=== PATIENT | male | born 1970 ===

== ENCOUNTER → 2019-12-21 | Outpatient (CLI) | payer BC ==
--- NOTE | 2019-12-21 16:21 | KCIC ---
CT CHEST WO CONTRAST Indication: Hilar adenopathy, pleural effusion, chest pain Technique: Noncontrast CT imaging was performed of the chest, multiplanar reconstruction images submitted. One or more of the following individualized dose reduction techniques were utilized for this examination: 1. Automated exposure control 2. Adjustment of the mA and/or kV according to patient size 3. Use of iterative reconstruction technique. Comparison: None Findings: There are some calcified nodes of the right mediastinum and hilum. No enlarged noncalcified nodes are identified of the chest. Thoracic aortic caliber is within normal limits. There is mild coronary calcification. There is no pleural or pericardial fluid, pneumothorax, or infiltrate. There is tiny right upper lobe nodule laterally about 0.2 cm image 28 series 2. There is a tiny 0.2 cm fairly dense right lower lobe nodule image 36 series 2 likely partially calcified. There is multilevel mild thoracic spondylosis. IMPRESSION: 1. There are calcified right mediastinal and hilar nodes, evidence of old granulomatous disease. 2. There is mild coronary calcification. 3. There is tiny right upper lobe nodule, no new additional follow-up needed if low risk factors for neoplasm, optional 12 month follow-up if increased risk factors for neoplasm as per revised Fleischner guidelines. Electronically signed by: Grzegorz Lopez MD (12/21/2019 4:18 PM) [id number]
== END | disposition home or self-care (01) ==
LOC: KCIC CT 14:17
PROVIDERS: ATTEND Internal Medicine
DX: Z00.00 Encounter for general adult medical examination without abnormal findings (principal); R30.0 Dysuria; R31.9 Hematuria, unspecified; I25.10 Atherosclerotic heart disease of native coronary artery without angina pectoris; R91.1 Solitary pulmonary nodule; M47.814 Spondylosis without myelopathy or radiculopathy, thoracic region
CPT/HCPCS: 71250